=== PATIENT | male | born 1955 | race Asian ===

== ENCOUNTER 2017-09-18 17:09 | Emergency (ER) | payer MEDICAID ==
[2017-09-18] MEDS ORDERED: Sodium Chloride 0.9% 1,000 ML IV ONE (17:42)
[2017-09-18] MEDS ORDERED: Morphine Sulfate 4 mg/mL 1mL Syr IVP ONE (17:43)
--- NOTE | 2017-09-18 17:46 | ED Physician Chart ---
ED Chief Complaint/HPI - Patient Information Date Seen:: 09/18/17 Time Seen:: 17:38 Chief Complaint:: PAIN IN RT SHOULDER AND HIP REGION AFTER FALL. History of Present Illness:: PT WAS STANDING ON A WALL DOING GARDENING CHORES WHEN HE LOST HIS BALANCE AND FELL APPROXIMATE 5 FEET TO A DIRT SURFACE. PT SUSTAINED INJURY TO THE RT SHOULDER, RT HIP AND RT PELVIC REGION. NO HEAD OR NECK INJURY AND NO LOC. 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 PT WITH EXTREEM PAIN IN THE RT HIP REGION. Allergies:: Allergies Allergy/AdvReac Type Severity Reaction Status Date / Time No Known Allergies Allergy Verified 09/18/17 17:17 Vitals:: Vital Signs - 8 hr 09/18/17 17:17 Temp 98.4 F HR 67 RR 16 BP 138/75 O2 Sat % 98 ED Review of Systems - Review of Systems General/Constitutional: No fever, No chills, No weakness, No diaphoresis, No loss of appetite Skin: No rash, No bruising, Other (ABRASION OVER THE RT ELBOW) Head: No headache, No light-headedness Eyes: No loss of vision, No pain, No diplopia ENT: No earache, No sore throat Neck: No neck pain, No swelling, No stiffness, No mass noted Cardio Vascular: No chest pain, No edema Pulmonary: No SOB, No sputum GI: No nausea, No vomiting, No pain G/U: No dysuria, No hematuria Musculoskeletal: Bone or joint pain (severe pain of the right shoulder and the right hip region with any movement. No tenderness with compression of the iliac wings.), No back pain, Muscle pain Psychiatric: No prior psych history, No depression, No suicidal ideation Hematopoietic: No bruising, No lymphadenopathy Allergic/Immuno: No urticaria, No angioedema Neurological: No syncope, No focal symptoms, No weakness, No paresthesia, No headache, No confusion Family Medical History - Family Member Mother History Unknown: Yes ED Physical Exam - Physical Examination General/Constitutional: Awake, Well-developed, well-nourished, Alert Other Gen/Cons comments:: Patient in severe distress secondary to injuries from the fall. Patient is nonambulatory at this time. Head: Atraumatic Eyes: Lids, conjuctiva normal, PERRL, EOMI Other Skin comments:: Superficial abrasion with dirt over the right elbow. ENMT: External ears, nose nl, TM canals nl, Nasal exam nl, Lips, teeth, gums nl , Oropharynx nl, Tonsils nl Neck: Nontender, Full ROM w/o pain, No JVD, No nuchal rigidity, No mass, No stridor Respiratory: Nl effort/Exclusion, No Wheeze/Rhonchi/Rales Cardio Vascular: RRR, No murmur, gallop, rubs, NL S1 S2 Other Cardio Vascular comments:: Good pulses in all 4 extremities. No peripheral edema. GI: No tenderness/rebounding/guarding, No organomegaly, No hernia, Normal BS's, Nondistended, No mass/bruits, No McBurney tenderness Other GI comments:: Rectal examination deferred at my discretion. : No CVA tenderness Other Extremities comments:: Patient has significant tenderness over the proximal humerus of the right upper extremity extending into the region of the right shoulder. No significant deformities noted. Also with extreme pain with any manipulation of the right hip. There is minimal distal tenderness in the right lower extremity at the level of the knee or below. Good distal pulses in both lower extremities. Motor function impaired in the right lower extremity secondary to severe pain at the level of the hip. ED Labs/Radiology/EKG Results - Lab Results Results: Laboratory Tests 09/18/17 09/18/17 09/18/17 18:22 18:22 18:22 WBC 14.5 H RBC 4.67 Hgb 14.1 Hct 40.5 L MCV 86.7 MCH 30.2 H MCHC Differential 34.9 RDW 11.9 Plt Count 172 MPV 9.1 Band Neutrophils % 5 Neutrophils (Manual) 80 Lymphocytes 12 L Monocytes 3 Platelet Estimate ADEQUATE PT 9.4 L INR 0.90 Sodium 136 Potassium 3.3 L Chloride 106 Carbon Dioxide 27.2 Anion Gap 6.1 L BUN 21 Creatinine 1.0 Est GFR ( Amer) > 60.0 Est GFR (Non-Af Amer) > 60.0 BUN/Creatinine Ratio 21.0 Glucose 93 Whole Bld Lactic Acid Calcium 8.7 09/18/17 18:22 WBC RBC Hgb Hct MCV MCH MCHC Differential RDW Plt Count MPV Band Neutrophils % Neutrophils (Manual) Lymphocytes Monocytes Platelet Estimate PT INR Sodium Potassium Chloride Carbon Dioxide Anion Gap BUN Creatinine Est GFR ( Amer) Est GFR (Non-Af Amer) BUN/Creatinine Ratio Glucose Whole Bld Lactic Acid 1.82 Calcium The CBC Showed a moderated leukocytosis in the 14K range that was consistent with the severe pain that he was experiencing. There was no anemia and the lactic acid was within the normal range. There was mild hypokalemia of no clinical significance. 3 View X-rays of the Right shoulder were negative for any acute fracture or dislocation. NO AC seperation. Impression: NO ACUTE TRAUMATIC FINDINGS. 3 Views of the right hip and pelvis: NO fradture of the hip or femur. NO dislocation. There was an Acetabular fracture and a non-displaced fracture of the right inferior pelvic ramus. Impressin: Acute Acetabular fradture and Rt inferior ramus fracture. ED Assessment - Assessment General Assessment: CASE SUMMARY: THIS 62 year old male fell off a wall landing 5 feet below onto a dirt surface. He landed on his right shoulder and right hip. He was in severe pain when seen that was addressed with IV morphine and follow up Dilaudid. X- ray studies showed no evidence of traumatic shoulder injury. X-ray studies of the right hip and pelvis showed no evidence of a hip fracture or dislocation. The pelvic x-rays showed a right acetabular fracture and fracture of the right inferior pelvic ramus. The case was discussed with Dr. German Barillas, the talent solutions manager admitting physician. The patient has an IPA insurance. The patient was transferred to [facility] for pain control and orthopedic consultation. MDM DDX 5 FOOT FALL: NOT Head injury based on history and physical exam. NOT cervical spine injury based on physical exam and NEXUS criteria. NOT right shoulder injury based on negative shoulder X-rays. NOT Right hip fracture based on normal x-ray of R femur. ED Septic Shock - . Is Septic Shock (SBP<90, OR Lactate>4 mmol\L) present?: No - <6hrs of presentation: Vital Signs: Vital Signs - 8 hr 09/18/17 17:17 Temp 98.4 F HR 67 RR 16 BP 138/75 O2 Sat % 98 ED Reassessment (Disposition) - Reassessment Reassessment Condition:: Improved - Diagnosis Diagnosis:: RIGHT ACETABULAR FRACTURE. RT INFERIOR RAMUS FRACTURE OF THE PELVIS. RT SHOULDER CONTUSION. - Aftercare/Follow up Instructions Aftercare/Follow-Up Instructions:: Counseled pt & family regarding lab results/ diagnosis & need follow up - Patient Disposition Discharge/Transfer:: Acute Care (other hosp) ([facility] ED Discharge Plan - Patient Disposition Admit/Discharge/Transfer: TRANSFER TO ACUTE HOSP Condition at Disposition: Unchanged
[2017-09-18] MEDS ORDERED: HYDROmorphone 1 mg/mL 1mL Syr IVP STA (18:27)
[2017-09-18 18:29] LABS: HEMATOCRIT 40.5 % (41.0-60); HEMOGLOBIN 14.1 gm/dL (12-16); MEAN CELL VOLUME 86.7 fl (80-99); MEAN CORPUSCULAR HEMOGLOBIN 30.2 pg (26.0-30.0); MEAN CORPUSCULAR HGB CONC 34.9 pg (28.0-36.0); MEAN PLATELET VOLUME 9.1 fl; PLATELET COUNT 172 Th/cmm (150-400); RED BLOOD COUNT 4.67 Mil/cmm (4.30-5.70); RED CELL DISTRIBUTION WIDTH 11.9 % (11.5-20.0)
[2017-09-18] MEDS ORDERED: HYDROmorphone 2 mg/mL 1mL Vial ONE (18:29)
[2017-09-18 18:34] LABS: MANUAL DIFF REQUIRED? YES; WHITE BLOOD COUNT 14.5 Th/cmm (4.8-10.8)
[2017-09-18 18:40] LABS: INR 0.9 (0.5-1.4); PROTHROMBIN TIME (TEST) 9.4 SECONDS (9.5-11.5)
[2017-09-18] MEDS ORDERED: Triple Antibiotic 0.94 gm Pkt TP ONE (18:40)
[2017-09-18 18:43] LABS: ANION GAP 6.1 (7.0-16.0); BUN - UREA NITROGEN 21 mg/dL (7-25); CALCIUM SERUM 8.7 mg/dL (8.6-10.3); CARBON DIOXIDE 27.2 mEq/L (21.0-31.0); CHLORIDE 106 mEq/L (98-107); GFR AFRICAN-AMERICAN > 60.0 ml/min (>90); GFR NON AFRICAN-AMERICAN > 60.0 ml/min; GLUCOSE 93 mg/dL; POTASSIUM SERUM 3.3 mEq/L (3.5-5.1); SODIUM SERUM 136 mEq/L (136-145)
[2017-09-18] MEDS ORDERED: Triple Antibiotic 0.94 gm Pkt TP STA (18:48)
[2017-09-18 18:55] LABS: BAND NEUTROPHILE 5 % (0-10); LYMPHOCYTE 12 % (20-50); MONOCYTE 3 % (2-10); NEUTROPHILS 80 % (40-80); PLATELET ESTIMATE ADEQUATE (NORMAL)
[2017-09-18] MEDS ORDERED: Potassium Chloride 20 mEq ER Tab PO ONE ×2 (20:47→20:54)
--- NOTE | 2017-09-19 02:00 | ER Physician Documentation ---
DATE OF SERVICE: 09/18/2017 The patient was seen by Dr. Diaz Merritt, he is our ER physician. At the change of the shift, he left me with this patient and he did all the work. I thank him for this privilege for this good job. Essentially, I am sending the ER notes, he was just waiting for the official report to be dictated and to send it to you, I just got the report. The patient is a 62-year-old male patient. He was picking up some kenney about 5 feet, because of wind situation, he fell down and he fell on his right shoulder and the right side of the leg and friends of Deon Walker picked him up and brought him here to the Emergency Room where Dr. Merritt evaluated the patient. He is a very senior ER physician and we are proud to have him here with us. He did the x-rays. We have a Yi speaking nurse also. He helped in talking again to the patient. I also talked to the patient's . As the patient fell down, x-rays were done of the shoulder and the pelvis. Dr. Stevo Doyle read the findings and he sent the report showing right acetabular and right inferior pubic ramus fracture and there is no dislocation. Because of insurance reason, we were advised to transfer the patient to your facilities and ____ accepted the patient, he is the ER physician, but I believe ultimately Dr. Monty Devries might be the physician who would be in-charge of the patient. ____ admits the patient and advised the patient to go to med-surg floor. He did not give me any room number. The nurse wanted the room number, accepting nurse, etc., so that they can from one person to other person give this information. I did transfer my information medical mas to the patient. He is going to room 302A. I was just told by our nurse that the patient will go to room 302A and our nurses to call this number [phone], which they will do and do diligence as far as this thing is concerned. We will try and send you this report. The patient got 6 mg of morphine, 1 mg of Dilaudid, and 30 mg of Toradol, he is being given at the present moment, so the patient will be going to via transfer ____. The patient's authorization number is [id number], authorization number given by our nurse and they will verify and do the needful. The copies are done and CD of the films are done and the also took the pictures of the x-rays that were done over here. She is a very smart woman, so she took the pictures also and I looked at the picture. Dr. Merritt, as I mentioned, is a senior ER physician and the patient was given some Dilaudid and Toradol is given, morphine was given, IV fluids have been given, Zofran for some nausea 4 mg was given IV x 1. On the physical examination, there is a sprain in the right shoulder, but there is no dislocation, no fracture, and the fracture is only seen into the right acetabular and right inferior pubic ramus fracture, no dislocation. All these things are made aware to the nurse, Gallo on the duty and the other nurse, ____ also is aware. The triage nurse is aware also that the patient will be going to your facility. I initially spoke to Dr. Monty Devries, who told me that the hospitalist, ____ will take care with whom I spoke and he will accept the patient. Thank you again. The patient is going to [facility]. Once you get this report, please send it to the Emergency Room or one of the place here in the ER, so we can send it to them. JOB# [id number]
--- NOTE | 2017-09-19 10:01 | Diagnostic Imaging Report ---
Right shoulder 3 views Indication: Trauma Comparison: none Findings: No evidence of an acute fracture or dislocation. Mild degenerative changes are seen with osteophytic spurring of the inferior glenoid. No significant focal soft tissue swelling. Impression: No evidence of an acute fracture. In the setting of trauma, if clinical symptoms persist and there is continued concern for an occult fracture, follow up exams in 5-7 days is suggested.
--- NOTE | 2017-09-19 10:01 | Diagnostic Imaging Report ---
Pelvis and right hip 2 views Indication: Trauma Comparison: none Findings: There is a minimally displaced fracture involving the right acetabulum medially and superiorly. A nondisplaced right inferior pubic ramus fracture is noted. The right femur is intact. No evidence of dislocation. There is evidence of hemisacralization of L5 on the left. Impression: Minimally displaced fractures involving the right acetabulum and right inferior pubic ramus. CT would be helpful for further assessment of the fractures, if indicated. Dr. Merritt was informed of the findings on 09/18/2017 at 8:00 PM.
== END 2017-09-18 21:10 | disposition short-term general hospital (02) ==
LOC: ER 17:09
DX: S32.401A Unspecified fracture of right acetabulum, initial encounter for closed fracture (principal); S40.011A Contusion of right shoulder, initial encounter; W13.8XXA Fall from, out of or through other building or structure, initial encounter; Y93.89 Activity, other specified; Y92.89 Other specified places as the place of occurrence of the external cause; Y99.8 Other external cause status
CPT/HCPCS: 99285; 96374; 96375; 72170; 73502; 73030; 36415; 83605; 85007; 85027; 85610; 80048; 87081; J1885; J2405; 73501; J1170; J2270; J7030